=== PATIENT | male | born 2000 | race Caucasian/White ===

== ENCOUNTER 2022-08-13 05:30 | Emergency (ER) ==
[~2022-08-13] VITALS: Ht 167.6 cm; Wt 86.0 kg
[2022-08-13] MEDS ORDERED: LORazepam 2 MG/ML VIAL IV STA (05:45)
[2022-08-13] MEDS ORDERED: NS 1,000 ML IV ONE (05:45)
[2022-08-13] MEDS ORDERED: UNRESOLVED CLARIFICATION ENTRY XX STA (05:49)
[2022-08-13 06:03] LABS: BASO % 0.4 % (0.0-1.0); EOS % 0.1 % (0.0-3.0); HEMATOCRIT 41.6 % (42.0-52.0); HEMOGLOBIN 13.3 g/dl (13.5-17.5); LYMPH # 1.8 10^3/uL (1.5-5.0); LYMPH % 24.3 % (24.0-44.0); MEAN CORPUSCULAR HEMOGLOBIN 24.8 pg (27.0-33.0); MEAN CORPUSCULAR VOLUME 77.5 fl (80.0-96.0); MONO # 0.5 10^3/uL (0.0-0.8); MONO % 6.9 % (2.0-8.0); NEUTROPHILS % 67.1 % (36.0-66.0); PLATELET COUNT, AUTOMATED 315 10^3/uL (150-450); RED BLOOD COUNT 5.37 10^6/uL (4.30-6.10); WHITE BLOOD COUNT 7.4 10^3/uL (4.0-10.0)
[2022-08-13 07:39] LABS: ACETAMINOPHEN LEVEL < 2.0 UG/ML (10.0-20.0); ALBUMIN 4.3 G/DL (3.2-5.2); ALT/SGPT 49 U/L (7.0-40); BILIRUBIN,DIRECT < 0.1 MG/DL (<0.4); BILIRUBIN,TOTAL 0.2 MG/DL (0.3-1.2); BLOOD UREA NITROGEN 12 MG/DL (9-23); CALCIUM LEVEL 9.2 MG/DL (8.5-10.1); CARBON DIOXIDE LEVEL 25 MMOL/L (20-31); CHLORIDE LEVEL 109 MMOL/L (98-107); CREATININE FOR GFR 0.89 MG/DL (0.70-1.30); GLOMERULAR FILTRATION RATE > 60.0 (>60); GLUCOSE, FASTING 109 MG/DL (60-100); POTASSIUM SERUM 3.4 MMOL/L (3.5-5.1); SODIUM LEVEL 147 MMOL/L (136-145); THYROID STIMULATING HORMONE 3.483 uIU/ML (0.55-4.78); TOTAL PROTEIN 7.4 G/DL (5.7-8.2)
[2022-08-13 08:23] LABS: ETHYL ALCOHOL (ETHANOL) 0.288 % (0.000-0.010)
[2022-08-13 08:57] LABS: SALICYLATE LEVEL < 3.0 MG/DL (<30)
[2022-08-13 10:55] LABS: RSV AMPLIFICATION NEGATIVE (NEGATIVE)
== END 2022-08-13 16:30 | disposition home or self-care (01) ==
LOC: M ED 05:30
DX: F10.129 Alcohol abuse with intoxication, unspecified (principal); S01.91XA Laceration without foreign body of unspecified part of head, initial encounter; R00.0 Tachycardia, unspecified
CPT/HCPCS: 36600; 70450; 72125; 80048; 80076; 80143; 82077; 82803; 84443; 85025; 87631; 93005; 93041; 94660; 94760; 96361; 96374; 99285; J2060